=== PATIENT | female | born 1955 | race Caucasian/White ===

== ENCOUNTER → 2016-05-17 | Outpatient (CLI) | payer OTHER ==
--- NOTE | 2016-05-17 16:37 | CT ---
Chest CT, without contrast History: Possible right lung nodule in the medial right lung base Comparison: Outside chest x-ray and report November 01, 2015 Technique: [address] through the chest without contrast. Multiplanar reconstructions are ob tained and reviewed. Findings: There is pleural-parenchymal scarring at the lateral right lung apex, likely related to rem ote granulomatous disease. There is a calcified granuloma in this posterior subpleural superior segme nt of the right lower lobe and associated with the upper left major fissure.. There is a small triang ular noncalcified nodule in the anterior right middle lobe(image 161, series 3 -4.8 x 4.0 mm) that li arely represents a benign lymph node, that possibly correlates with the chest x-ray nodule. No other n oncalcified pulmonary nodules are identified. There is no bronchitis or bronchiectasis. Heart size is normal with a small pericardial effusion, of uncertain clinical significance. There is no mediastina l or hilar adenopathy. Impression: 1. Small probably benign noncalcified right middle lobe nodule, possibly correlating to the chest x-ray finding. Recommend follow-up noncontrast CT in one year for further evaluation. Doub t that there is any significant change in size. 2. Small pericardial effusion of uncertain clinical significance, possibly an incidental finding, con sidering a normal sized heart. 3. Old granulomatous disease. A Follow-Up Required message has been communicated to BECK PERDOMO DO via the [employer] Critical Result system on 05/17/2016 16:35, Message ID [id number].
== END ==
LOC: FIMAGING 14:24
PROVIDERS: ATTEND Family Medicine
DX: R91.1 Solitary pulmonary nodule (principal); I31.3 Pericardial effusion (noninflammatory)

== ENCOUNTER → 2017-10-11 | Outpatient (CLI) | payer OTHER | LOC: FIMAGING 11:30 | PROVIDERS: ATTEND Family Medicine | DX: R91.8 Other nonspecific abnormal finding of lung field (principal); J84.10 Pulmonary fibrosis, unspecified ==

== ENCOUNTER → 2018-02-08 | Outpatient (CLI) | payer OTHER | LOC: CIMAGING 12:34 | PROVIDERS: ATTEND Family Medicine | DX: M25.562 Pain in left knee (principal); M25.561 Pain in right knee; M25.762 Osteophyte, left knee; M25.761 Osteophyte, right knee | CPT/HCPCS: 73565-PO ==

== ENCOUNTER → 2018-08-15 | Outpatient (CLI) | payer OTHER | LOC: CIMAGING 16:46 | PROVIDERS: ATTEND Family Medicine | DX: M47.22 Other spondylosis with radiculopathy, cervical region (principal); M50.31 Other cervical disc degeneration, high cervical region | CPT/HCPCS: 72052-PO ==

== ENCOUNTER → 2018-09-21 | Outpatient (CLI) | payer OTHER | LOC: EMCIMAGING 08:05 ==